=== PATIENT | female | born 1975 | race American Indian/Alaskan Native ===

== ENCOUNTER 2021-10-08 11:34 | Emergency (ER) | payer SELFPAY ==
--- NOTE | 2021-10-08 14:22 | Emergency Department Report ---
ED General Adult HPI - General Chief complaint: Urogenital-Female Stated complaint: TOOTH ACHE/BREAST PAIN Time Seen by Provider: 10/08/21 14:01 Source: patient Mode of arrival: Ambulatory Limitations: No Limitations - History of Present Illness Initial comments: This is a 46-year-old -[place] female who presents to the clinic with right sided dental pain for 1 week. Patient states her wisdom tooth cracked and reports pain is 10 out of 10 aching intensity. Taking [id number] medication with minimal change in symptoms. Patient also reports left nipple is painful and swollen. Patient denies injury to the nipple. States it is red and warm to touch. Denies drainage from nipple, fever, chills, facial swelling, sore throat, or difficulty swallowing. - Related Data Previous Rx's Medication Instructions Recorded Last Taken Type Ibuprofen [Motrin 800 MG tab] 800 mg PO Q8HR PRN #20 tablet 10/08/21 Unknown Rx Sulfamethoxazole/Trimethoprim 1 each PO BID #20 tab 10/08/21 Unknown Rx [Bactrim DS TAB] ED Review of Systems ROS: Stated complaint: TOOTH ACHE/BREAST PAIN Other details as noted in HPI Constitutional: denies: chills, fever ENT: dental pain (Left nipple pain). denies: ear pain, throat pain Respiratory: denies: cough, shortness of breath, wheezing Cardiovascular: as per HPI Skin: denies: rash, lesions Neurological: denies: headache, weakness, paresthesias Psychiatric: denies: anxiety, depression ED Past Medical Hx - Past Medical History Previous Medical History?: No - Surgical History Past Surgical History?: No - Medications Home Medications: Home Medications Medication Instructions Recorded Confirmed Last Taken Type Ibuprofen [Motrin 800 MG tab] 800 mg PO Q8HR PRN #20 tablet 10/08/21 Unknown Rx Sulfamethoxazole/Trimethoprim 1 each PO BID #20 tab 10/08/21 Unknown Rx [Bactrim DS TAB] ED Physical Exam - General Limitations: No Limitations General appearance: alert, in no apparent distress, obese - ENT ENT exam: Present: mucous membranes moist - Expanded ENT Exam Expanded Teeth exam: Present: dental caries, fractured tooth # (32), dental tenderness # (32), gingival enlargement 1 - Fractured, Dental Tenderness Throat exam: Positive: normal inspection - Respiratory Respiratory exam: Present: normal lung sounds bilaterally. Absent: respiratory distress - Cardiovascular Cardiovascular Exam: Present: regular rate, normal rhythm. Absent: systolic murmur, diastolic murmur, rubs, gallop - Neurological Exam Neurological exam: Present: alert, oriented X3, normal gait - Psychiatric Psychiatric exam: Present: normal affect, normal mood - Skin Skin exam: Present: warm, dry, intact, normal color. Absent: rash - Other Other exam information: Breast: Left, nipple retraction, erythematous, warm ttp, erythematous surrounding nipple. No chest deformity. Normal contours. No nodules, masses, or axillary adenopathy. No nipple discharge. ED Course Vital Signs 10/08/21 10/08/21 12:27 14:41 Temperature 98.9 F Pulse Rate 85 82 Respiratory 18 16 Rate Blood Pressure 172/85 165/91 [Left] O2 Sat by Pulse 99 100 Oximetry ED Medical Decision Making - Medical Decision Making 46-year-old -[place] female presents to the emergency room with left nipple pain and right lower wisdom tooth fracture. Noted left nipple retraction and pain and fracture right #32 tooth. Left nipple appears to be infected. Start Bactrim DS. Referral to [employer] supervisor for further evaluation. Patient given handout with emergency dental clinics for management of fractured tooth. Continue taking NSAIDs for comfort. Patient discharged home stable. Critical care attestation.: If time is entered above; I have spent that time in minutes in the direct care of this critically ill patient, excluding procedure time. ED Disposition Clinical Impression: Nipple infection in female, Nipple pain, Pain, dental, Elevated blood pressure reading Fracture, tooth Qualifiers: Encounter type: initial encounter Fracture type: closed Qualified Code(s): S02.5XXA - Fracture of tooth (traumatic), initial encounter for closed fracture Disposition: HOME / SELF CARE / HOMELESS Is pt being admited?: No Condition: Stable Instructions: and Cracked or Sore Nipples, [id number], Tooth Injuries Prescriptions: Sulfamethoxazole/Trimethoprim [Bactrim DS TAB] 1 each PO BID #20 tab Ibuprofen [Motrin 800 MG tab] 800 mg PO Q8HR PRN #20 tablet PRN Reason: Pain , Severe (7-10) Referrals: CARLOTTA WAITE MD [Staff Physician] - 3-5 Days [facility] [Outside] - 3-5 Days [facility] [Outside] - 3-5 Days Forms: Work/School Release Form(ED) Time of Disposition: 14:31
[2021-10-08 14:48] VITALS: BP 165/91
== END 2021-10-08 15:07 | disposition home or self-care (01) ==
LOC: ED 11:34
DX: S02.5XXA Fracture of tooth (traumatic), initial encounter for closed fracture (principal); K08.89 Other specified disorders of teeth and supporting structures; N61.1 Abscess of the breast and nipple; Z79.899 Other long term (current) drug therapy; X58.XXXA Exposure to other specified factors, initial encounter; Y93.89 Activity, other specified; Y92.89 Other specified places as the place of occurrence of the external cause; Y99.8 Other external cause status
CPT/HCPCS: 99282

== ENCOUNTER 2021-10-14 14:48 | Emergency (ER) | payer SELFPAY ==
[2021-10-14 16:36] LABS: Bacteria,Urine 1+ /HPF (Negative); Mucus,Urine FEW /HPF
[2021-10-14 16:40] LABS: Color,Urine Yellow (Yellow)
--- NOTE | 2021-10-14 16:53 | Emergency Department Report ---
ED Female HPI - General Chief complaint: Urogenital-Female Stated complaint: STD TEST Time Seen by Provider: 10/14/21 16:16 Source: patient Mode of arrival: Ambulatory Limitations: No Limitations - Related Data Previous Rx's Medication Instructions Recorded Last Taken Type Ibuprofen [Motrin 800 MG tab] 800 mg PO Q8HR PRN #20 tablet 10/08/21 Unknown Rx Sulfamethoxazole/Trimethoprim 1 each PO BID #20 tab 10/08/21 Unknown Rx [Bactrim DS TAB] Nitrofurantoin [place]/M-Cryst 100 mg PO Q12HR 7 Days #14 capsule 10/14/21 Unknown Rx [Macrobid CAP] metroNIDAZOLE [Flagyl] 500 mg PO BID 7 Days #14 tab 10/14/21 Unknown Rx ED Review of Systems ROS: Stated complaint: STD TEST Other details as noted in HPI ED Past Medical Hx - Medications Home Medications: Home Medications Medication Instructions Recorded Confirmed Last Taken Type Ibuprofen [Motrin 800 MG tab] 800 mg PO Q8HR PRN #20 tablet 10/08/21 Unknown Rx Sulfamethoxazole/Trimethoprim 1 each PO BID #20 tab 10/08/21 Unknown Rx [Bactrim DS TAB] Nitrofurantoin [place]/M-Cryst 100 mg PO Q12HR 7 Days #14 capsule 10/14/21 Unknown Rx [Macrobid CAP] metroNIDAZOLE [Flagyl] 500 mg PO BID 7 Days #14 tab 10/14/21 Unknown Rx ED Physical Exam - General Limitations: No Limitations ED Course Vital Signs 10/14/21 16:04 Temperature 98.5 F Pulse Rate 74 Blood Pressure 158/91 [Right] O2 Sat by Pulse 100 Oximetry Critical care attestation.: If time is entered above; I have spent that time in minutes in the direct care of this critically ill patient, excluding procedure time. ED Disposition Clinical Impression: Trichomonas vaginitis, Bacterial vaginosis UTI (urinary tract infection) Qualifiers: Urinary tract infection type: acute cystitis Hematuria presence: without hematuria Qualified Code(s): N30.00 - Acute cystitis without hematuria Disposition: HOME / SELF CARE / HOMELESS Is pt being admited?: No Does the pt Need Aspirin: No Condition: Stable Instructions: Bacterial Vaginosis (ED), Bacterial Vaginosis, [id number], Antibiotic Medicine, Adult, [id number], Urinary Tract Infection, Adult, [id number]-[id number], Trichomoniasis Additional Instructions: Medications as prescribed. Practice safe sex. Follow-up with your primary care provider if no improvement or worsening symptoms. Return to the emergency department as needed. Prescriptions: metroNIDAZOLE [Flagyl] 500 mg PO BID 7 Days #14 tab Nitrofurantoin [place]/M-Cryst [Macrobid CAP] 100 mg PO Q12HR 7 Days #14 capsule Referrals: CARLOTTA WAITE MD [Staff Physician] - 3-5 Days LORENA KHALIL MD [Staff Physician] - 3-5 Days Forms: STI Treatment and Prevention Time of Disposition: 16:55
[2021-10-14 17:13] VITALS: BP 162/83
== END 2021-10-14 17:29 | disposition home or self-care (01) ==
LOC: ED 14:48
DX: A59.01 Trichomonal vulvovaginitis (principal); N76.0 Acute vaginitis; B96.89 Other specified bacterial agents as the cause of diseases classified elsewhere; N39.0 Urinary tract infection, site not specified; Z79.899 Other long term (current) drug therapy
CPT/HCPCS: 81001; 87086; 87210; 99283

== ENCOUNTER 2021-11-13 14:09 | Emergency (ER) | payer OTHER | END 2021-11-13 18:27 | disposition left against medical advice (07) | LOC: ED 14:09 | DX: N76.89 Other specified inflammation of vagina and vulva (principal); Z53.21 Procedure and treatment not carried out due to patient leaving prior to being seen by health care provider ==